=== PATIENT | male | born 1960 | race Caucasian/White ===

== ENCOUNTER 2020-09-12 10:20 | Emergency (ER) | payer BC ==
--- NOTE | 2020-09-12 11:09 | EDM.PDOC ---
ED HPI GENERAL MEDICAL PROBLEM - General Chief Complaint: Respiratory Problem Stated Complaint: COUGHING BLOOD Time Seen by Provider: 09/12/20 10:55 Source of Information: Reports: Patient, Old Records, RN History Limitations: Reports: No Limitations - History of Present Illness INITIAL COMMENTS - FREE TEXT/NARRATIVE: 60 yo male with an approx 40 pack yr smoking hx and who quit smoking last November presents with hemoptysis intermittently since this past Thursday. He has noted also mild SOB and a low grade temp with some chills. He denies nose bleed. No green or yellow sputum production. Onset: Gradual Onset Date: 09/07/20 Duration: Day(s):, Waxing/Waning Location: Reports: Chest Quality: Reports: Sharp Severity: Mild Improves with: Reports: Other (? coughing) Worsens with: Reports: Other (unknown) Context: Reports: Other (See HPI) Associated Symptoms: Reports: Chest Pain (mild, intermittent), Cough, Fever/Chills (mild at times), Shortness of Breath (mild) Treatments NURSE'S ASSISTANT: Reports: Other (see below) (none) Right Chest Pain Score (Numeric/FACES): 5 - Related Data Allergies Allergy/AdvReac Type Severity Reaction Status Date / Time No Known Allergies Allergy Verified 09/12/20 10:49 Home Meds: Home Meds Gemfibrozil 600 mg PO BID 11/26/13 [History] Lisinopril 40 mg PO DAILY 11/26/13 [History] Azithromycin [Zithromax] 250 mg PO DAILY #6 tablet 09/12/20 [Rx] amLODIPine Besylate [Amlodipine Besylate] 10 mg PO DAILY 09/12/20 [History] Past Medical History Cardiovascular History: Reports: High Cholesterol, Hypertension Musculoskeletal History: Reports: Fracture Dermatologic History: Reports: Other (See Below) Other Dermatologic History: rosacea - Infectious Disease History Infectious Disease History: Reports: Chicken Pox, Shingles Social & Family History - Tobacco Use Tobacco Use Status *Q: Former Tobacco User Used Tobacco, but Quit: Yes Month/Year Tobacco Last Used: 11/2019 Tobacco Use Comment: 1ppd for 40 years total. - Caffeine Use Caffeine Use: Reports: Coffee - Recreational Drug Use Recreational Drug Use: Yes Recreational Drug Type: Reports: Marijuana/Hashish Recreational Drug Use Frequency: Socially - Living Situation & Occupation Living situation: Reports: , with Spouse ED ROS GENERAL - Review of Systems Review Of Systems: See Below Constitutional: Reports: Chills HEENT: Reports: No Symptoms Respiratory: Reports: Shortness of Breath, Cough Cardiovascular: Reports: No Symptoms Endocrine: Reports: No Symptoms GI/Abdominal: Reports: No Symptoms : Reports: No Symptoms Musculoskeletal: Reports: No Symptoms Skin: Reports: No Symptoms Neurological: Reports: No Symptoms Psychiatric: Reports: No Symptoms ED EXAM, GENERAL - Physical Exam Exam: See Below Exam Limited By: No Limitations General Appearance: Alert, WD/WN, No Apparent Distress, Other (appears older than stated age) Eye Exam: Bilateral Eye: Normal Inspection Ears: Normal External Exam, Normal Canal, Hearing Grossly Normal, Normal TMs Ear Exam: Bilateral Ear: Auricle Normal, Canal Normal, TM normal Nose: Normal Inspection, No Blood Throat/Mouth: Normal Inspection, Normal Lips, Normal Oropharynx, Normal Voice, No Airway Compromise Head: Atraumatic, Normocephalic Neck: Normal Inspection Respiratory/Chest: No Respiratory Distress, Lungs Clear, No Accessory Muscle Use , Decreased Breath Sounds Cardiovascular: Regular Rate, Rhythm, No Edema, Tachycardia GI/Abdominal: Normal Bowel Sounds, Soft, Non-Tender, No Distention Back Exam: Normal Inspection. No: CVA Tenderness (R), CVA Tenderness (L) Extremities: Normal Inspection, Normal Range of Motion, Non-Tender, No Pedal Edema Neurological: Alert, Oriented, CN II-XII Intact, Normal Cognition, No Motor/Sensory Deficits Psychiatric: Normal Affect, Normal Mood Skin Exam: Warm, Dry, Intact, Normal Color, No Rash Course - Vital Signs Last Recorded V/S: Last Vital Signs Temp 37.4 C 09/12/20 10:46 Pulse 109 H 09/12/20 10:46 Resp 20 09/12/20 10:46 BP 146/96 H 09/12/20 10:46 Pulse Ox 93 L 09/12/20 10:46 - Orders/Labs/Meds Labs: Laboratory Tests 09/12/20 09/12/20 Range/Units 11:11 11:11 WBC 11.6 H (4.5-11.0) K/uL RBC 5.35 (4.30-5.90) M/uL Hgb 14.3 (12.0-15.0) g/dL Hct 46.6 (40.0-54.0) % MCV 87 (80-98) fL MCH 27 (27-31) pg MCHC 31 L (32-36) % Plt Count 409 H (150-400) K/uL Sodium 137 L (140-148) mmol/L Potassium 4.0 (3.6-5.2) mmol/L Chloride 101 (100-108) mmol/L Carbon Dioxide 28 (21-32) mmol/L Anion Gap 12.0 (5.0-14.0) mmol/L BUN 17 (7-18) mg/dL Creatinine 1.0 (0.8-1.3) mg/dL Est Cr Clr Drug Dosing 86.56 mL/min Estimated GFR (MDRD) > 60 (>60) Glucose 107 H (74-106) mg/dL Calcium 9.2 (8.5-10.1) mg/dL C-Reactive Protein 10.99 H (0.0-0.3) mg/dL - Radiology Interpretation Free Text/Narrative:: CT chest-RUL lung CA + infiltrate CT Results Date: 09/12/20 CT Results Time: 12:08 Departure - Departure Time of Disposition: 12:15 Disposition: Home, Self-Care 01 Condition: Poor Clinical Impression: Lung mass Pneumonia Qualifiers: Pneumonia type: due to unspecified organism Laterality: right Lung location: upper lobe of lung Qualified Code(s): J18.9 - Pneumonia, unspecified organism - Discharge Information *PRESCRIPTION DRUG MONITORING PROGRAM REVIEWED*: Not Applicable *COPY OF PRESCRIPTION DRUG MONITORING REPORT IN PATIENT ZACHARIAH: Not Applicable Prescriptions: Azithromycin [Zithromax] 250 mg PO DAILY #6 tablet Referrals: PCP,None [Primary Care Provider] - Forms: ED Department Discharge Additional Instructions: Take azithromycin as directed until gone. Take acetaminophen up to 1000 mg every 6 hrs for pain or fever control. Follow up with oncology regarding the mass seen today in your Chest CT scan. Return as needed. Sepsis Event Note (ED) - Evaluation Sepsis Screening Result: No Definite Risk - Focused Exam Vital Signs: Vital Signs Temp Pulse Resp BP Pulse Ox 09/12/20 10:46 37.4 C 109 H 20 146/96 H 93 L 09/12/20 10:43 37.4 C 109 H 20 146/96 H 93 L
--- NOTE | 2020-09-12 12:04 | CT ---
Chest wo Cont CLINICAL HISTORY: Low-grade fever, SOB, hemoptysis TECHNIQUE: Transverse scans were obtained from the thoracic inlet to the lung bases without contrast. Auto dosage reduction in intervertebral reconstruction techniques were employed COMPARISONS: None FINDINGS: There is a masslike density in the right upper lobe. There is some peripheral pneumonia likely postobstructive pneumonia. There is masslike [place] get of adenopathy in the upper mediastinum measuring 6.2 x 6.1 x 7.0 cm. There is also subcarinal and aortopulmonic window lymphadenopathy. There is no pleural effusion. Scans in the upper abdomen show no mass or adenopathy IMPRESSION: Large mass in the right upper lobe extending from the suprahilar region to the apex. This is consistent with primary neoplasm. There is peripheral post obstructive infiltrate and atelectasis. Mediastinal lymphadenopathy with conglomerate mass of lymph nodes in the upper right mediastinum
== END 2020-09-12 12:43 | disposition home or self-care (01) ==
LOC: JP.ED 10:20
DX: J18.9 Pneumonia, unspecified organism (principal); R91.8 Other nonspecific abnormal finding of lung field; I10 Essential (primary) hypertension; Z87.891 Personal history of nicotine dependence
CPT/HCPCS: 36415; 71250; 71250-26; 80048; 85027; 86140; 99283; 99285-25